=== PATIENT | male | born 1955 | race African-American/Black ===

== ENCOUNTER 2021-08-27 12:20 | Emergency (ER) | payer SELFPAY ==
[~2021-08-27] VITALS: Ht 162.6 cm; Wt 64.5 kg
[2021-08-27] MEDS ORDERED: HYDROcodone/APAP 5/325MG 1 TAB TABLET PO ONE (13:00)
[2021-08-27] MEDS ORDERED: CYCLOBENZAPRINE 10 MG TABLET. PO ONE (13:00)
[2021-08-27] MEDS ORDERED: IBUPROFEN 200 MG TABLET. PO ONE (13:00)
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
[2021-08-27] MEDS ORDERED: CYCL10TA19 PO (14:51)
[2021-08-27] MEDS ORDERED: IBUP-1007 PO (14:51)
[2021-08-27 15:04] VITALS: BP 180/78
== END 2021-08-27 15:05 | disposition home or self-care (01) ==
LOC: ER 12:20
DX: M25.512 Pain in left shoulder (principal); M54.12 Radiculopathy, cervical region; G89.11 Acute pain due to trauma; F17.200 Nicotine dependence, unspecified, uncomplicated; V49.59XA Passenger injured in collision with other motor vehicles in traffic accident, initial encounter; Y92.488 Other paved roadways as the place of occurrence of the external cause; Y93.89 Activity, other specified; Y99.8 Other external cause status
CPT/HCPCS: 73030; 99284